=== PATIENT | male | born 1980 | race Caucasian/White ===

== ENCOUNTER 2021-02-28 14:58 | Emergency (ER) | payer BC, OTHER ==
[~2021-02-28] VITALS: Ht 172.7 cm; Wt 104.3 kg
[2021-02-28] MEDS ORDERED: ONDANSETRON ODT 4 MG TAB.RAPDIS SL ONE (15:15)
[2021-02-28] MEDS ORDERED: IBUPROFEN 600 MG TABLET PO ONE (15:30)
[2021-02-28] MEDS ORDERED: ACETAMINOPHEN 325 MG TABLET PO ONE (15:30)
[2021-02-28] MEDS ORDERED: ONDANSETRON ODT 4 MG TAB.RAPDIS ONE (15:34)
[2021-02-28] MEDS ORDERED: ACETAMINOPHEN ES 500 MG TABLET ONE (15:34)
--- NOTE | 2021-02-28 15:35 | NUR ---
Nasal Swab for COVID collected and sent to LAB.
[2021-02-28] MEDS ORDERED: IBUPROFEN 600 MG TABLET ONE (15:37)
--- NOTE | 2021-02-28 16:12 | NUR ---
Patient discharged to home in stable condition. Written and verbal after care instructions given. Patient verbalizes understanding of instructions. Stressed follow up or return to ER for worsening s/s.
[2021-02-28 16:14] VITALS: BP 145/99
== END 2021-02-28 16:15 | disposition home or self-care (01) ==
LOC: ER 15:00
DX: U07.1 COVID-19 (principal); R11.0 Nausea
CPT/HCPCS: 71045; 87426; 99284; U0003; A4663; A9150; Q0162

== ENCOUNTER 2021-03-23 06:44 | Outpatient (CLI) | payer BC, OTHER ==
[2021-03-23 07:25] LABS: HEMATOCRIT 42.1 % (36.7-47.1); MEAN CORPUSCULAR HEMOGLOBIN 30.8 uug (23.8-33.4); MEAN CORPUSCULAR VOLUME 90.6 fL (73.0-96.2); PLATELET COUNT (AUTO) 343 K/uL (152-348)
[2021-03-23 07:28] LABS: *BILIRUBIN,URIN NEGATIVE (NEGATIVE); *BLOOD, URINE NEGATIVE (NEGATIVE); *CLARITY,URINE CLEAR (CLEAR); *COLOR,URINE YELLOW (YELLOW); *KETONES,URINE NEGATIVE (NEGATIVE); *UROBILINOGEN,URINE 0.2 E.U./dl (NORMAL); LEUKOCYTE ESTERASE ,URINE NEGATIVE (NEGATIVE); NITRITE, URINE NEGATIVE (NEGATIVE); UGLUCOSE NEGATIVE (NEGATIVE)
[2021-03-23 08:07] LABS: BILIRUBIN,TOTAL 0.4 mg/dL (0.2-1.0); CREATININE 0.7 mg/dL (0.6-1.3); POTASSIUM 4.2 mmol/L (3.5-5.1); TOTAL PROTEIN, SERUM 7.7 g/dL (6.4-8.2); URIC ACID 6.4 mg/dL (3.5-7.2)
[2021-03-23 08:36] LABS: THYROID STIMULATING HORMONE 1.369 mIU/mL (0.358-3.740)
== END 2021-03-23 23:59 | disposition home or self-care (01) ==
LOC: LAB 06:44
PROVIDERS: ATTEND Internal Medicine
DX: E78.5 Hyperlipidemia, unspecified (principal); E55.9 Vitamin D deficiency, unspecified; R53.82 Chronic fatigue, unspecified; E66.3 Overweight
CPT/HCPCS: 36415; 82306; 82746; 84443; 84550; 85025

== ENCOUNTER 2022-05-01 14:30 | Emergency (ER) | payer BC, OTHER ==
[~2022-05-01] VITALS: Ht 175.3 cm; Wt 108.0 kg
--- NOTE | 2022-05-01 15:00 | NUR ---
MD at bedside for evaluation
[2022-05-01 15:40] LABS: HEMATOCRIT 41.2 % (36.7-47.1); MEAN CORPUSCULAR HEMOGLOBIN 30.6 uug (23.8-33.4); MEAN CORPUSCULAR VOLUME 91.5 fL (73.0-96.2); PLATELET COUNT (AUTO) 225 K/uL (152-348)
[2022-05-01 15:41] LABS: CREATININE 0.7 mg/dL (0.6-1.3); POTASSIUM 3.5 mmol/L (3.5-5.1)
[2022-05-01 15:47] LABS: BILIRUBIN,DIRECT 0.1 mg/dL (0.0-0.2); BILIRUBIN,TOTAL 0.2 mg/dL (0.2-1.0); TOTAL PROTEIN, SERUM 7.2 g/dL (6.4-8.2)
[2022-05-01 16:54] VITALS: BP 143/83
== END 2022-05-01 16:55 | disposition home or self-care (01) ==
LOC: ER 14:30
DX: R42 Dizziness and giddiness (principal); R73.9 Hyperglycemia, unspecified; R03.0 Elevated blood-pressure reading, without diagnosis of hypertension
CPT/HCPCS: 36415; 85025; 93005; A4663

== ENCOUNTER 2023-09-14 08:27 | Emergency (ER) | payer BC, OTHER ==
[~2023-09-14] VITALS: Ht 172.7 cm; Wt 99.8 kg
[2023-09-14] MEDS ORDERED: CLIN300C12 PO (09:08)
[2023-09-14] MEDS ORDERED: CLINDAMYCIN HCL 300 MG CAPSULE ONE (09:43)
[2023-09-14] MEDS ORDERED: predniSONE 50 MG TABLET ONE (09:43)
[2023-09-14] MEDS: predniSONE 50 MG TABLET PO ONE (09:47)
[2023-09-14] MEDS: CLINDAMYCIN HCL 150 MG CAPSULE PO ONE (09:47)
[2023-09-14 09:48] VITALS: BP 142/79; TEMP 98.2; O2SAT 97
== END 2023-09-14 13:11 | disposition home or self-care (01) ==
LOC: ER 08:27
DX: J36 Peritonsillar abscess (principal); Z79.899 Other long term (current) drug therapy; Z20.822 Contact with and (suspected) exposure to COVID-19
CPT/HCPCS: 99283; 87426; 87804 ×2; 86403; J7512; A4606; A4663

== ENCOUNTER 2023-12-25 22:28 | Emergency (ER) | payer BC, OTHER ==
[~2023-12-25] VITALS: Ht 175.3 cm; Wt 102.1 kg
[~2023-12-25 22:28] MED LIST: CLIN300C12 PO
[2023-12-25] MEDS ORDERED: METOCLOPRAMIDE HCL 10 MG/2 ML VIAL ONE (22:47)
[2023-12-25] MEDS: IV NORMAL SALINE 1000 ML BAG IV ONE (22:50)
[2023-12-25 22:53] LABS: BASOPHILS # (AUTO) 0.1 K/UL (0.0-0.2); BASOPHILS % (AUTO) 0.4 % (0.0-2.0); HEMATOCRIT 45.8 % (36.7-47.1); HEMOGLOBIN 16.1 g/dL (12.5-16.3); LYMPHOCYTES # (AUTO) 0.7 K/uL (0.8-4.8); LYMPHOCYTES % (AUTO) 4.8 % (20.5-51.5); MEAN CORPUSCULAR HEMOGLOBIN 31.3 uug (23.8-33.4); MEAN CORPUSCULAR HGB CONC 35 g/dL (32.5-36.3); MEAN CORPUSCULAR VOLUME 89.4 fL (73.0-96.2); MONOCYTES # (AUTO) 0.7 K/uL (0.1-1.30); MONOCYTES % (AUTO) 4.7 % (0.0-11.0); NEUTROPHILS # (AUTO) 13.4 K/uL (1.8-8.9); NEUTROPHILS % (AUTO) 90.1 % (38.5-71.5); PLATELET COUNT (AUTO) 221 K/uL (152-348); RED BLOOD CELL COUNT(AUTO) 5.12 MIL/uL (4.06-5.63); RED CELL DISTRIBUTION WIDTH 14.4 % (12.1-16.2); WHITE BLOOD COUNT (AUTO) 14.9 K/uL (3.6-10.2)
[2023-12-25] MEDS: METOCLOPRAMIDE HCL 10 MG/2 ML VIAL IV ONE (22:53)
[2023-12-25 22:59] LABS: DIFFERENTIAL COMMENT 1
[2023-12-25 23:05] LABS: CALCIUM 9.2 mg/dL (8.5-10.1); CREATININE 0.8 mg/dL (0.6-1.3); POTASSIUM 3.4 mmol/L (3.5-5.1)
[2023-12-25 23:11] LABS: ALBUMIN 3.8 g/dL (3.4-5.0); BILIRUBIN,DIRECT 0.2 mg/dL (0.0-0.2); BILIRUBIN,TOTAL 0.7 mg/dL (0.2-1.0); TOTAL PROTEIN, SERUM 8.1 g/dL (6.4-8.2)
[2023-12-26] MEDS ORDERED: ONDANSETRON ODT 4 MG TAB.RAPDIS ONE (00:14)
[2023-12-26] MEDS ORDERED: CIPROFLOXACIN HCL 250 MG TABLET ONE (00:14)
[2023-12-26] MEDS: ONDANSETRON ODT 4 MG TAB.RAPDIS SL ONE (00:15)
[2023-12-26] MEDS: CIPROFLOXACIN HCL 250 MG TABLET PO ONE (00:16)
[2023-12-26] MEDS ORDERED: FAMOTIDINE 20 MG TABLET ONE (00:17)
[2023-12-26] MEDS: FAMOTIDINE 20 MG TABLET PO ONE (00:17)
[2023-12-26] MEDS ORDERED: METO-295 PO (00:20)
[2023-12-26] MEDS ORDERED: CIPR500S2 PO (00:20)
[2023-12-26 02:24] VITALS: BP 120/60; O2SAT 100
== END 2023-12-26 00:30 | disposition home or self-care (01) ==
LOC: ER 22:30
DX: R11.2 Nausea with vomiting, unspecified (principal); Z79.899 Other long term (current) drug therapy
CPT/HCPCS: 99284; 96374; 96361; 80076; 80048; 85025; 36415; J2765; J7040; A4606; A4663; Q0162